=== PATIENT | female | born 1950 | race Hispanic/Latino ===

== ENCOUNTER 2021-09-14 15:19 | Outpatient (RCR) | payer MEDICARE | END 2021-09-21 | LOC: PT 15:19 | PROVIDERS: ATTEND Specialist | DX: M17.11 Unilateral primary osteoarthritis, right knee (principal); S86.911A Strain of unspecified muscle(s) and tendon(s) at lower leg level, right leg, initial encounter ==

== ENCOUNTER 2021-10-14 14:54 | Outpatient (RCR) | payer MEDICARE | END 2021-10-22 | LOC: PT 14:54 | PROVIDERS: ATTEND Specialist | DX: M17.11 Unilateral primary osteoarthritis, right knee (principal); S86.911A Strain of unspecified muscle(s) and tendon(s) at lower leg level, right leg, initial encounter ==